=== PATIENT | female | born 1940 | race Caucasian/White ===

== ENCOUNTER 2021-04-17 14:36 | Emergency (ER) | payer MEDICARE ==
[2021-04-17 15:21] LABS: #Monocytes 0.4 10x3/uL (0.0-1.1); #Neutrophils 3.7 10x3/uL (1.5-8.4); %Basophils 0.8 % (0.0-2.0); %Eosinophils 0.6 % (0.0-6.0); %Lymphocytes 21.6 % (18.0-47.0); %Monocytes 6.9 % (0.0-10.0); %Neutrophils 69.9 % (40.0-75.0); Hemoglobin 12.6 g/dL (12.0-15.5); Mean Corpuscular HGB CONC 34.7 g/dL (32.0-36.0); Mean Corpuscular Hemoglobin 30.7 pg (27.0-33.0); Mean Corpuscular Volume 88.3 fl (81.6-98.3); Mean Platelet Volume 9.7 fl (7.4-10.4); Platelet Count 317 10x3/uL (150-450); RBC Distribution Width 12.3 % (11.5-14.5); Red Blood Cell (RBC) Count 4.11 10x6/uL (3.90-5.03); White Blood Cell (WBC) Count 5.2 10x3/uL (3.5-10.5)
[2021-04-17 15:32] LABS: ALT (SGPT) 17 U/L (8-55); AST (SGOT) 16 U/L (5-34); Albumin 4.3 g/dL (3.4-4.8); Alkaline Phosphatase 68 U/L (40-110); Anion Gap 13 mmol/L (10-20); BUN (Urea Nitrogen) 9 mg/dL (9.8-20.1); Bilirubin, Total 0.4 mg/dL (0.2-1.2); Calc. Creatinine Clearance 0 mL/min (70-130); Calcium 9.6 mg/dL (7.8-10.44); Carbon Dioxide 25 mmol/L (23-31); Chloride 98 mmol/L (98-107); Globulin 2.6 g/dL (2.4-3.5); Glucose 176 mg/dL (83-110); Protein, Total 6.9 g/dL (5.8-8.1); Sodium 133 mmol/L (136-145)
[2021-04-17] MEDS ORDERED: Potassium Chloride 20 MEQ TAB ONE (16:17)
== END 2021-04-17 17:22 | disposition home or self-care (01) ==
LOC: CSHERS 14:36
DX: E87.6 Hypokalemia (principal); E03.9 Hypothyroidism, unspecified; E78.5 Hyperlipidemia, unspecified; E78.00 Pure hypercholesterolemia, unspecified; M19.90 Unspecified osteoarthritis, unspecified site; I10 Essential (primary) hypertension
CPT/HCPCS: 80053; 84484; 85025; 93005

== ENCOUNTER 2021-07-13 10:35 | Outpatient (CLI) | payer MEDICARE | END 2021-07-13 10:36 | disposition home or self-care (01) | LOC: CSHMAMMO 10:35 | PROVIDERS: ATTEND Family Medicine | DX: Z13.820 Encounter for screening for osteoporosis (principal); Z78.0 Asymptomatic menopausal state; M85.851 Other specified disorders of bone density and structure, right thigh; M85.852 Other specified disorders of bone density and structure, left thigh | CPT/HCPCS: 77080 ==

== ENCOUNTER 2023-01-10 08:01 | Outpatient (CLI) | payer MEDICARE | END 2023-01-10 08:02 | disposition home or self-care (01) | LOC: CSHCT 08:01 | PROVIDERS: ATTEND Physician Assistant Medical | DX: R10.13 Epigastric pain (principal); K86.2 Cyst of pancreas; K59.00 Constipation, unspecified; R63.4 Abnormal weight loss; N28.9 Disorder of kidney and ureter, unspecified; K76.9 Liver disease, unspecified | CPT/HCPCS: 74170; 82565 ==

== ENCOUNTER 2024-02-06 09:59 | Outpatient (CLI) | payer MEDICARE | END 2024-02-06 10:00 | disposition home or self-care (01) | LOC: CSHCT 09:59 | PROVIDERS: ATTEND Internal Medicine Gastroenterology | DX: K86.2 Cyst of pancreas (principal); R10.13 Epigastric pain; R63.4 Abnormal weight loss; K59.00 Constipation, unspecified; N28.9 Disorder of kidney and ureter, unspecified | CPT/HCPCS: 74170; 82565 ==

== ENCOUNTER 2024-07-02 12:07 | Outpatient (CLI) | payer MEDICARE | END 2024-07-02 12:08 | disposition home or self-care (01) | LOC: CSHULT 12:07 | PROVIDERS: ATTEND Urology | DX: N39.0 Urinary tract infection, site not specified (principal); N28.9 Disorder of kidney and ureter, unspecified | CPT/HCPCS: 76770 ==